=== PATIENT | female | born 1980 | race Caucasian/White ===

== ENCOUNTER 2018-04-07 06:39 | Inpatient (IN) | payer OTHER ==
[~2018-04-07] VITALS: Ht 157.5 cm; Wt 69.8 kg
[~2018-04-07 06:39] MED LIST: DOCU-131 PO; ETON1VAG VG; IBUP200T49 PO; OXYC-302 PO; PNV1TABL11 PO
[2018-04-07] MEDS ORDERED: LACTATED RINGERS 1,000 ML IV SCH ×3 (06:43→08:25)
[2018-04-07] MEDS ORDERED: OXYTOCIN 30U/ 0.9% NaCL 500ML 500 ML IV SCH ×2 (06:43→08:25)
[2018-04-07] MEDS ORDERED: SODIUM CITRATE/CITRIC ACID 30 ML UDC ONE (06:49)
[2018-04-07] MEDS ORDERED: METOCLOPRAMIDE 5 MG/ML, 2ML ONE (06:49)
[2018-04-07] MEDS ORDERED: NEWBORN KIT ONE (06:49)
[2018-04-07] MEDS ORDERED: LACTATED RINGERS 1,000 ML IVBOLUS ONE (07:00)
[2018-04-07] MEDS ORDERED: TERBUTALINE 1 MG/ML, 1ML ONE (07:07)
[2018-04-07] MEDS ORDERED: TERBUTALINE 1 MG/ML, 1ML IV ONE (07:15)
[2018-04-07] MEDS ORDERED: CEFAZOLIN 1,000 MG ONE (07:21)
[2018-04-07] MEDS ORDERED: OXYTOCIN 10 UNITS/ML, 1ML ONE (07:21)
[2018-04-07] MEDS ORDERED: ONDANSETRON 2MG/ML, 2ML ONE (07:21)
[2018-04-07] MEDS ORDERED: HYDROmorphone 2 MG/ML, 1ML ONE ×2 (07:22→07:24)
[2018-04-07] MEDS ORDERED: SODIUM CHLORIDE 0.9% PF 10ML ONE ×2 (07:22)
[2018-04-07] MEDS ORDERED: FENTANYL PF 100 MCG/2ML ONE (07:22)
[2018-04-07 07:32] LABS: BASOPHILS # (AUTO) 0.06 x10^3/uL (0-0.1); BASOPHILS % (AUTO) 0 % (0-1); EOSINOPHILS # (AUTO) 0.14 x10^3/uL (0-0.4); EOSINOPHILS % (AUTO) 1 % (1-7); LYMPHOCYTES # (AUTO) 3.07 x10^3/uL (1-3.4); LYMPHOCYTES % (AUTO) 20 % (22-44); MD NO; MEAN CORPUSCULAR HEMOGLOBIN 26.9 pg (27.0-34.8); MEAN CORPUSCULAR HGB CONC 32.3 g/dL (32.4-35.8); MEAN CORPUSCULAR VOLUME 83.1 fL (80-100); MEAN PLATELET VOLUME 9.8 fL (7.4-10.4); MONOCYTES # (AUTO) 0.38 x10^3/uL (0.2-0.8); MONOCYTES % (AUTO) 2 % (2-9); NEUTROPHILS # (AUTO) 12.07 x10^3/uL (1.8-6.8); NEUTROPHILS % (AUTO) 77 % (42-75); PLATELET COUNT 338 x10^3/uL (130-400); RED BLOOD COUNT 4.49 x10^6/uL (3.82-5.3); RED CELL DISTRIBUTION WIDTH 17.1 % (9.6-15.2)
[2018-04-07] MEDS ORDERED: ACETAMINOPHEN 325 MG TABLET PO PRN ×2 (08:30→11:30)
[2018-04-07] MEDS ORDERED: OXYcodone/APAP 5/325MG TABLET PO PRN (08:30)
[2018-04-07] MEDS ORDERED: OXYcodone IR 5MG TABLET PO PRN ×2 (08:30→11:30)
[2018-04-07] MEDS ORDERED: MISOPROSTOL 200 MCG TABLET PR PRN ×2 (08:30→11:30)
[2018-04-07] MEDS ORDERED: DOCUSATE 100 MG CAPSULE PO PRN (08:30)
[2018-04-07] MEDS ORDERED: morphine SULFATE 10 MG/ML, 1ML IVPush PRN ×3 (08:30→11:30)
[2018-04-07] MEDS ORDERED: KETOROLAC 30 MG/1 ML IM SCH (08:30)
[2018-04-07] MEDS ORDERED: ONDANSETRON 2MG/ML, 2ML IV PRN ×2 (08:30→11:30)
[2018-04-07] MEDS ORDERED: OXYTOCIN 30U/ 0.9% NaCL 500ML 500 ML ONE (08:36)
[2018-04-07] MEDS ORDERED: PRENATAL VIT/IRON/FA 1 EACH TABLET PO SCH (09:00)
[2018-04-07] MEDS ORDERED: METOCLOPRAMIDE 5 MG/ML, 2ML IVPush ONE (09:00)
[2018-04-07] MEDS ORDERED: SODIUM CITRATE/CITRIC ACID 30 ML UDC PO ONE (09:00)
[2018-04-07] MEDS ORDERED: ONDANSETRON ODT 4 MG ONE (09:09)
[2018-04-07] MEDS ORDERED: ONDANSETRON ODT 4 MG PO ONE (09:30)
[2018-04-07 10:50] VITALS: BP 98/62
[2018-04-07] MEDS: LACTATED RINGERS 1,000 ML IV SCH ×4 (11:09→21:09)
[2018-04-07] MEDS: OXYTOCIN 30U/ 0.9% NaCL 500ML 500 ML IV SCH ×2 (11:09→21:09)
[2018-04-07] MEDS ORDERED: IBUPROFEN 600 MG TABLET PO PRN (11:30)
[2018-04-07] MEDS: KETOROLAC 30 MG/1 ML IV SCH ×3 (12:00→23:07)
[2018-04-07 16:08] LABS: BASOPHILS # (AUTO) 0.03 x10^3/uL (0-0.1); BASOPHILS % (AUTO) 0 % (0-1); EOSINOPHILS # (AUTO) 0.23 x10^3/uL (0-0.4); EOSINOPHILS % (AUTO) 2 % (1-7); LYMPHOCYTES # (AUTO) 1.68 x10^3/uL (1-3.4); LYMPHOCYTES % (AUTO) 12 % (22-44); MD NO; MEAN CORPUSCULAR HEMOGLOBIN 26.9 pg (27.0-34.8); MEAN CORPUSCULAR HGB CONC 32.3 g/dL (32.4-35.8); MEAN CORPUSCULAR VOLUME 83.2 fL (80-100); MEAN PLATELET VOLUME 9.2 fL (7.4-10.4); MONOCYTES # (AUTO) 0.31 x10^3/uL (0.2-0.8); MONOCYTES % (AUTO) 2 % (2-9); NEUTROPHILS # (AUTO) 12.34 x10^3/uL (1.8-6.8); NEUTROPHILS % (AUTO) 85 % (42-75); PLATELET COUNT 285 x10^3/uL (130-400); RED BLOOD COUNT 3.94 x10^6/uL (3.82-5.3); RED CELL DISTRIBUTION WIDTH 17.5 % (9.6-15.2)
[2018-04-07 16:10] VITALS: BP 93/60
[2018-04-07] MEDS: OXYcodone/APAP 5/325MG TABLET PO PRN ×2 (17:39→23:01)
[2018-04-07 19:20] VITALS: BP 99/63
[2018-04-07 23:10] VITALS: BP 93/62
[2018-04-08] MEDS: LACTATED RINGERS 1,000 ML IV SCH ×5 (03:09→19:09)
[2018-04-08] MEDS: KETOROLAC 30 MG/1 ML IV SCH ×4 (05:04→22:58)
[2018-04-08] MEDS: OXYcodone/APAP 5/325MG TABLET PO PRN ×4 (05:05→20:47)
[2018-04-08 05:15] VITALS: BP 93/62
[2018-04-08 06:55] VITALS: BP 95/58
[2018-04-08] MEDS: OXYTOCIN 30U/ 0.9% NaCL 500ML 500 ML IV SCH ×2 (07:09→17:09)
[2018-04-08] MEDS: DOCUSATE 100 MG CAPSULE PO PRN ×2 (08:23→20:47)
[2018-04-08] MEDS: PRENATAL VIT/IRON/FA 1 EACH TABLET PO SCH (08:23)
[2018-04-08] MEDS ORDERED: SIMETHICONE 80 MG CHEW TAB PO PRN (14:30)
[2018-04-08 19:10] VITALS: BP 102/69
[2018-04-09] MEDS: LACTATED RINGERS 1,000 ML IV SCH ×4 (03:09→13:09)
[2018-04-09] MEDS: OXYTOCIN 30U/ 0.9% NaCL 500ML 500 ML IV SCH ×2 (03:09→13:09)
[2018-04-09] MEDS: KETOROLAC 30 MG/1 ML IV SCH (04:45)
[2018-04-09 06:50] VITALS: BP 97/57
[2018-04-09] MEDS: DOCUSATE 100 MG CAPSULE PO PRN (07:34)
[2018-04-09] MEDS: PRENATAL VIT/IRON/FA 1 EACH TABLET PO SCH (07:34)
[2018-04-09] MEDS ORDERED: IBUPROFEN 600 MG TABLET PO PRN (08:30)
[2018-04-09] MEDS ORDERED: IBUP-1222 PO (15:09)
[2018-04-09] MEDS ORDERED: DOCU-131 PO (15:09)
[2018-04-09] MEDS ORDERED: OXYC-302 PO (15:09)
== END 2018-04-09 16:15 | disposition home or self-care (01) | DRG 766 ==
LOC: LDOP 06:39 → LDIP 07:10 → 2NW 10:35
PROVIDERS: ADMIT Obstetrics & Gynecology; ATTEND Obstetrics & Gynecology
PROC: 10D00Z1 Extraction of Products of Conception, Low, Open Approach (ICD-10-PCS; principal; 2018-04-07)
PROC: 0UB70ZZ Excision of Bilateral Fallopian Tubes, Open Approach (ICD-10-PCS; 2018-04-07)
DX: O32.1XX0 Maternal care for breech presentation, not applicable or unspecified (principal); O34.211 Maternal care for low transverse scar from previous cesarean delivery; O69.81X0 Labor and delivery complicated by cord around neck, without compression, not applicable or unspecified; Z37.0 Single live birth; Z3A.36 36 weeks gestation of pregnancy; Z30.2 Encounter for sterilization
CPT/HCPCS: 36415; 76815; 82803; 85025; 86850; 86900; 88302; G0378; J0690; J1170; J1885; J2405; J3010; Q0162; J2270; J2590; J2765; J7120